=== PATIENT | female | born 1940 | race Caucasian/White ===

== ENCOUNTER → 2020-10-30 | Outpatient (CLI) | payer MEDICARE ==
[~2020-10-30] MED LIST: ATORVASTATIN CA20 MG PO; CARVEDILOL6.25 MG PO; FAMOTIDINE20 MG PO; FEROSUL325 MG PO; FISH OIL 1,0001 EAC3 PO; FUROSEMIDE20 MG PO; HYDROCODON-ACE1 EAC2 PO; PLETAL 100 MG100 MG PO; XARELTO20 MG PO
== END ==
LOC: HEART 5 07:37
DX: I48.91 Unspecified atrial fibrillation (principal); I51.7 Cardiomegaly; I34.0 Nonrheumatic mitral (valve) insufficiency; I35.0 Nonrheumatic aortic (valve) stenosis; I27.20 Pulmonary hypertension, unspecified; I31.3 Pericardial effusion (noninflammatory)
CPT/HCPCS: 78452; 93306; A9502; J2785

== ENCOUNTER → 2020-11-19 | Outpatient (CLI) | payer MEDICARE ==
[2020-11-19 11:49] LABS: HEMOGLOBIN 13.8 gm/dl (12.3-15.3); RED BLOOD COUNT 4.59 M/UL (4.00-5.10); WHITE BLOOD COUNT 4.3 K/UL (4.5-11.0)
[2020-11-19 12:51] LABS: BUN/CREATININE RATIO 20 (0-10)
== END ==
LOC: LAB 10:51
PROVIDERS: Internal Medicine Interventional Cardiology
DX: I48.91 Unspecified atrial fibrillation (principal); I10 Essential (primary) hypertension; R07.9 Chest pain, unspecified
CPT/HCPCS: 36415; 80048; 85025; 85610; 85730; 93005

== ENCOUNTER → 2020-12-02 | Outpatient (CLI) | payer MEDICARE ==
[2020-12-02 09:29] LABS: RED BLOOD COUNT 4.62 M/UL (4.00-5.10); WHITE BLOOD COUNT 5.6 K/UL (4.5-11.0)
== END ==
LOC: CATH 08:51
PROVIDERS: Internal Medicine Interventional Cardiology
DX: I25.118 Atherosclerotic heart disease of native coronary artery with other forms of angina pectoris (principal); I48.91 Unspecified atrial fibrillation; I10 Essential (primary) hypertension; I73.9 Peripheral vascular disease, unspecified; I27.20 Pulmonary hypertension, unspecified; Z79.01 Long term (current) use of anticoagulants; Z79.891 Long term (current) use of opiate analgesic; Z79.899 Other long term (current) drug therapy
CPT/HCPCS: 36415; 80048; 85025; 85610; 85730; 93005; 99152; C1769; C1887; C1894; J0360; J1644; J2250; J3010; J3475; J7030; Q9965

== ENCOUNTER → 2021-04-10 | Outpatient (CLI) | payer MEDICARE | LOC: CT 04-08 08:30 | DX: I70.229 Atherosclerosis of native arteries of extremities with rest pain, unspecified extremity (principal); I70.219 Atherosclerosis of native arteries of extremities with intermittent claudication, unspecified extremity; I10 Essential (primary) hypertension; I48.91 Unspecified atrial fibrillation; R91.1 Solitary pulmonary nodule; I77.1 Stricture of artery | CPT/HCPCS: 36415; 75635; 82565; Q9967 ==